=== PATIENT | female | born 1985 | race Caucasian/White ===

== ENCOUNTER 2016-06-05 16:53 | Emergency (ER) | payer BC ==
[~2016-06-05] VITALS: Ht 162.6 cm; Wt 74.2 kg
[2016-06-05] MEDS ORDERED: SODIUM CHLORIDE 0.9% 1,000ML IVBOLUS ONE (17:30)
[2016-06-05] MEDS ORDERED: ACETAMINOPHEN 325 MG TABLET PO ONE (17:30)
[2016-06-05] MEDS ORDERED: ONDANSETRON 2MG/ML, 2ML IVPush ONE (17:30)
[2016-06-05 17:50] LABS: ASPARTATE AMINO TRANSFERASE 9 U/L (15-37); BLOOD UREA NITROGEN 8 mg/dL (7-18)
[2016-06-05] MEDS ORDERED: ONDANSETRON 2MG/ML, 2ML ONE (18:51)
[2016-06-05] MEDS ORDERED: ACETAMINOPHEN 325 MG TABLET ONE (18:51)
[2016-06-05 19:08] VITALS: BP 112/60
== END 2016-06-05 19:59 | disposition home or self-care (01) ==
LOC: ED 19:20
DX: O20.0 Threatened abortion (principal)
CPT/HCPCS: 36415; 51701; 76815; 80053; 81003; 84702; 85025; 96361; 96374; 99285; J2405; J7030; P9612

== ENCOUNTER 2016-07-31 16:21 | Outpatient (CLI) | payer BC ==
[2016-07-31] MEDS ORDERED: PREN1TAB60 PO (18:41)
== END 2016-07-31 18:58 | disposition home or self-care (01) ==
LOC: LDOP 16:21
PROVIDERS: ATTEND Obstetrics & Gynecology
DX: O44.02 Complete placenta previa NOS or without hemorrhage, second trimester (principal); O47.02 False labor before 37 completed weeks of gestation, second trimester; Z3A.21 21 weeks gestation of pregnancy
CPT/HCPCS: 59025; 81003; 87086; 99211; G0463

== ENCOUNTER 2016-10-09 08:02 | Emergency (ER) | payer BC ==
[~2016-10-09] VITALS: Ht 162.6 cm; Wt 75.0 kg
[~2016-10-09 08:02] MED LIST: PREN1TAB60 PO
[2016-10-09 08:04] VITALS: BP 119/79
[2016-10-09] MEDS ORDERED: HYDROcodone/APAP 5/325 TABLET PO ONE (08:30)
[2016-10-09] MEDS ORDERED: HYDROcodone/APAP 5/325 TABLET ONE (08:46)
== END 2016-10-09 10:23 | disposition home or self-care (01) ==
LOC: ED 08:31
DX: O26.893 Other specified pregnancy related conditions, third trimester (principal); Z3A.32 32 weeks gestation of pregnancy; S80.02XA Contusion of left knee, initial encounter; W18.30XA Fall on same level, unspecified, initial encounter; Y93.89 Activity, other specified; Y99.8 Other external cause status; Y92.488 Other paved roadways as the place of occurrence of the external cause
CPT/HCPCS: 29505

== ENCOUNTER 2016-11-02 11:27 | Outpatient (CLI) | payer BC ==
[~2016-11-02] VITALS: Ht 167.6 cm; Wt 75.0 kg
[2016-11-02 11:39] VITALS: BP 111/71
== END 2016-11-02 12:13 | disposition home or self-care (01) ==
LOC: LDOP 11:27
PROVIDERS: ATTEND Obstetrics & Gynecology
DX: O26.893 Other specified pregnancy related conditions, third trimester (principal); R10.9 Unspecified abdominal pain; M54.9 Dorsalgia, unspecified; Z3A.32 32 weeks gestation of pregnancy
CPT/HCPCS: 59025; 99211; G0463

== ENCOUNTER 2016-11-23 13:18 | Outpatient (CLI) | payer BC ==
[~2016-11-23] VITALS: Ht 162.6 cm; Wt 70.0 kg
[2016-11-23 14:34] VITALS: BP 125/71
== END 2016-11-23 14:34 | disposition home or self-care (01) ==
LOC: LDOP 13:18
PROVIDERS: ATTEND Obstetrics & Gynecology
DX: O26.893 Other specified pregnancy related conditions, third trimester (principal); O36.8130 Decreased fetal movements, third trimester, not applicable or unspecified; R10.9 Unspecified abdominal pain; Z3A.38 38 weeks gestation of pregnancy
CPT/HCPCS: 59025; 99211; G0463

== ENCOUNTER 2016-11-28 01:54 | Inpatient (IN) | payer BC ==
[~2016-11-28] VITALS: Ht 160 cm; Wt 84.1 kg
[2016-11-28] MEDS ORDERED: OXYTOCIN 30U/ 0.9% NaCL 500ML 500 ML IV ONE (02:05)
[2016-11-28] MEDS: LACTATED RINGERS 1,000 ML IV SCH ×4 (02:05→18:05)
[2016-11-28] MEDS ORDERED: NEWBORN KIT ONE (02:13)
[2016-11-28 02:22] LABS: HEMATOCRIT 37.7 % (34.6-47.8); HEMOGLOBIN 12.9 g/dL (11.7-16.4); WHITE BLOOD COUNT 10.5 x10^3/uL (3.4-10)
[2016-11-28] MEDS ORDERED: TERBUTALINE 1 MG/ML, 1ML SQ PRN (02:30)
[2016-11-28] MEDS ORDERED: ONDANSETRON 2MG/ML, 2ML IVPush PRN (02:30)
[2016-11-28] MEDS ORDERED: FENTANYL PF 100 MCG/2ML IV PRN (02:30)
[2016-11-28] MEDS ORDERED: FENTANYL PF 100 MCG/2ML IVPush PRN (02:30)
[2016-11-28] MEDS ORDERED: CALCIUM CARBONATE 500 MG TAB.CHEW PO PRN (02:30)
[2016-11-28] MEDS ORDERED: TERBUTALINE 1 MG/ML, 1ML IVPush PRN ×2 (02:30)
[2016-11-28] MEDS ORDERED: ALUMINUM/MAG/SIMETHICONE 30 ML UDC PO PRN (02:30)
[2016-11-28] MEDS ORDERED: OXYTOCIN 30U/ 0.9% NaCL 500ML 500 ML ONE (08:12)
[2016-11-28] MEDS ORDERED: FENTANYL/BUPIV./NS/PF 250 ML EPIDCONT ONE (09:47)
[2016-11-28] MEDS ORDERED: LIDOCAINE/PF 1.5%-EPI 1:200K, 30ML ONE (09:55)
[2016-11-28] MEDS: D5%-LACTATED RINGERS 1,000 ML IV SCH ×3 (10:05→21:28)
[2016-11-28] MEDS: FENTANYL/BUPIV./NS/PF 250 ML EPIDCONT SCH (10:29)
[2016-11-28] MEDS ORDERED: LACTATED RINGERS 1,000 ML IVBOLUS PRN (10:30)
[2016-11-28] MEDS ORDERED: LORazepam 2 MG/ML, 1ML IVPush ONE (19:00)
[2016-11-29] MEDS: LACTATED RINGERS 1,000 ML IV SCH ×9 (00:16→23:57)
[2016-11-29] MEDS: D5%-LACTATED RINGERS 1,000 ML IV SCH ×2 (02:05→10:05)
[2016-11-29] MEDS ORDERED: SODIUM CITRATE/CITRIC ACID 30 ML UDC ONE (03:34)
[2016-11-29] MEDS ORDERED: METOCLOPRAMIDE 5 MG/ML, 2ML ONE (03:35)
[2016-11-29] MEDS ORDERED: OXYTOCIN 30U/ 0.9% NaCL 500ML 500 ML IV SCH (03:36)
[2016-11-29] MEDS ORDERED: LACTATED RINGERS 1,000 ML IV SCH ×2 (03:45→03:57)
[2016-11-29] MEDS: OXYTOCIN 30U/ 0.9% NaCL 500ML 500 ML IV SCH ×3 (03:57→23:57)
[2016-11-29] MEDS ORDERED: SODIUM CITRATE/CITRIC ACID 30 ML UDC PO ONE (04:00)
[2016-11-29] MEDS ORDERED: MISOPROSTOL 200 MCG TABLET PR PRN (04:00)
[2016-11-29] MEDS ORDERED: morphine SULFATE 10 MG/ML, 1ML IVPush PRN (04:00)
[2016-11-29] MEDS ORDERED: ONDANSETRON 2MG/ML, 2ML IV PRN (04:00)
[2016-11-29] MEDS ORDERED: METOCLOPRAMIDE 5 MG/ML, 2ML IV ONE (04:00)
[2016-11-29] MEDS ORDERED: OXYcodone/APAP 5/325MG TABLET PO PRN (04:00)
[2016-11-29] MEDS ORDERED: LIDOCAINE/MPF 2%-EPI 1:200K, 20 ML ONE ×2 (06:49→06:54)
[2016-11-29] MEDS ORDERED: KETOROLAC 30 MG/1 ML ONE (06:54)
[2016-11-29] MEDS ORDERED: OXYTOCIN 10 UNITS/ML, 1ML ONE ×2 (06:54)
[2016-11-29] MEDS ORDERED: BICILLIN-LA 1,200,000 UNITS/2 ML IM ONE (06:54)
[2016-11-29] MEDS ORDERED: DEXAMETHASONE 4 MG/ML, 1ML ONE (06:54)
[2016-11-29] MEDS ORDERED: ONDANSETRON 2MG/ML, 2ML ONE (06:54)
[2016-11-29] MEDS ORDERED: CEFAZOLIN 1,000 MG ONE (06:54)
[2016-11-29] MEDS ORDERED: FENTANYL PF 100 MCG/2ML ONE ×2 (07:05)
[2016-11-29] MEDS: FENTANYL/BUPIV./NS/PF 250 ML EPIDCONT SCH (07:19)
[2016-11-29] MEDS ORDERED: EPHEDRINE 50 MG/ML, 1ML IVPush PRN (08:30)
[2016-11-29] MEDS ORDERED: HYDROmorphone 1 MG/ML, 1ML IV PRN (08:30)
[2016-11-29] MEDS ORDERED: FENTANYL PF 100 MCG/2ML IV PRN (08:30)
[2016-11-29] MEDS ORDERED: ONDANSETRON 2MG/ML, 2ML IVPush PRN (08:30)
[2016-11-29] MEDS ORDERED: OXYcodone 5 MG/5 ML ORAL.SOL UDC PO PRN (08:30)
[2016-11-29] MEDS ORDERED: MIDAZOLAM 1 MG/ML, 2ML IV PRN (08:30)
[2016-11-29] MEDS ORDERED: ALBUTEROL SULFATE 2.5 MG/3 ML NPPB PRN (08:30)
[2016-11-29] MEDS ORDERED: HYDROcodone/APAP 7.5-325MG/15ML UDC PO PRN (08:30)
[2016-11-29] MEDS ORDERED: hydrALAzine 20 MG/ML, 1ML IV PRN (08:30)
[2016-11-29] MEDS ORDERED: PROMETHAZINE 25 MG/ML, 1ML IV PRN (08:30)
[2016-11-29] MEDS ORDERED: LABETALOL 5MG/ML, 20ML IV PRN (08:30)
[2016-11-29] MEDS ORDERED: MEPERIDINE/PF 25MG/0.5ML IVPush PRN (08:30)
[2016-11-29] MEDS: PRENATAL VIT/IRON/FA 1 EACH TABLET PO SCH (09:00)
[2016-11-29 10:00] VITALS: BP 110/73
[2016-11-29] MEDS: OXYcodone IR 5MG TABLET PO PRN ×4 (10:20→22:30)
[2016-11-29 13:50] VITALS: BP 113/73
[2016-11-29] MEDS: KETOROLAC 30 MG/1 ML IV PRN ×2 (14:17→20:20)
[2016-11-29 16:18] LABS: HEMATOCRIT 32.3 % (34.6-47.8); WHITE BLOOD COUNT 14.3 x10^3/uL (3.4-10)
[2016-11-29 17:11] VITALS: BP 114/63
[2016-11-29 20:20] VITALS: BP 113/69
[2016-11-29] MEDS: DOCUSATE 100 MG CAPSULE PO PRN (22:30)
[2016-11-29 23:40] VITALS: BP 99/61
[2016-11-30] MEDS: KETOROLAC 30 MG/1 ML IV PRN (02:07)
[2016-11-30] MEDS: OXYcodone IR 5MG TABLET PO PRN ×5 (02:36→21:03)
[2016-11-30] MEDS: LACTATED RINGERS 1,000 ML IV SCH (03:13)
[2016-11-30] MEDS: OXYTOCIN 30U/ 0.9% NaCL 500ML 500 ML IV SCH (03:14)
[2016-11-30 04:15] VITALS: BP 94/58
[2016-11-30] MEDS ORDERED: SIMETHICONE 125 MG CHEW TAB PO PRN (08:00)
[2016-11-30] MEDS ORDERED: KETOROLAC 30 MG/1 ML ONE (08:17)
[2016-11-30] MEDS: PRENATAL VIT/IRON/FA 1 EACH TABLET PO SCH (08:19)
[2016-11-30] MEDS: DOCUSATE 100 MG CAPSULE PO PRN ×2 (08:19→21:03)
[2016-11-30] MEDS: IBUPROFEN 600 MG TABLET PO PRN ×3 (08:33→22:30)
[2016-11-30 08:50] VITALS: BP 103/64
[2016-11-30 20:30] VITALS: BP 101/59
[2016-12-01] MEDS: OXYcodone IR 5MG TABLET PO PRN ×4 (02:23→19:20)
[2016-12-01] MEDS: IBUPROFEN 600 MG TABLET PO PRN ×3 (04:57→19:20)
[2016-12-01] MEDS: OXYTOCIN 30U/ 0.9% NaCL 500ML 500 ML IV SCH ×2 (05:57→15:57)
[2016-12-01] MEDS: LACTATED RINGERS 1,000 ML IV SCH ×2 (05:57→15:57)
[2016-12-01 07:00] VITALS: BP 102/66
[2016-12-01] MEDS: DOCUSATE 100 MG CAPSULE PO PRN ×2 (09:09→19:20)
[2016-12-01] MEDS: PRENATAL VIT/IRON/FA 1 EACH TABLET PO SCH (09:09)
[2016-12-01] MEDS ORDERED: IBUP200T48 PO (15:32)
[2016-12-01] MEDS ORDERED: DOCU-131 PO (15:33)
[2016-12-01] MEDS ORDERED: OXYC-302 PO (15:33)
[2016-12-01 20:00] VITALS: BP 112/69
[2016-12-02 00:30] VITALS: BP 120/71
[2016-12-02] MEDS: IBUPROFEN 600 MG TABLET PO PRN ×2 (01:23→10:39)
[2016-12-02] MEDS: OXYcodone IR 5MG TABLET PO PRN ×3 (01:23→10:39)
[2016-12-02] MEDS: OXYTOCIN 30U/ 0.9% NaCL 500ML 500 ML IV SCH ×2 (01:57→11:57)
[2016-12-02] MEDS: LACTATED RINGERS 1,000 ML IV SCH ×2 (01:57→11:57)
[2016-12-02] MEDS: PRENATAL VIT/IRON/FA 1 EACH TABLET PO SCH (10:39)
[2016-12-02] MEDS: DOCUSATE 100 MG CAPSULE PO PRN (10:39)
[2016-12-02 10:40] VITALS: BP 116/73
== END 2016-12-02 13:13 | disposition home or self-care (01) | DRG 766 ==
LOC: LDOP 01:54 → LDIP 02:07 → 2NW 11-29 09:56
PROVIDERS: ADMIT Obstetrics & Gynecology; ATTEND Obstetrics & Gynecology
PROC: 10D00Z1 Extraction of Products of Conception, Low, Open Approach (ICD-10-PCS; principal; 2016-11-29)
DX: O62.0 Primary inadequate contractions (principal); Z23 Encounter for immunization; Z37.0 Single live birth
CPT/HCPCS: 36415; 82803; 85025; 86850; 86900; J0561; J0690; J1100; J1885; J2405; J3010; J3490; J2060; J2270; J2590; J7120; J7121